=== PATIENT | female | born 1995 | race Hispanic/Latino ===

== ENCOUNTER 2021-05-22 21:14 | Emergency (ER) | payer MEDICAID ==
[~2021-05-22] VITALS: Ht 172.7 cm; Wt 81.6 kg
[2021-05-22 21:41] LABS: APPEARANCE,URINE Cloudy (CLEAR); BILIRUBIN,URINE Negative (NEGATIVE); COLOR,URINE Yellow (YELLOW); GLUCOSE, URINE (UA) Negative (NEGATIVE); KETONES,URINE Negative (NEGATIVE); LEUKOCYTE ESTERASE ,URINE Large (NEGATIVE); NITRATE,URINE Positive (NEGATIVE); OCCULT BLOOD,URINE Large (NEGATIVE); PH,URINE 6.5 (5.0-8.0); PROTEIN,URINE POS 1+ mg/dL (NEGATIVE)
[2021-05-22 21:43] LABS: HCG,QUAL RESULT NEGATIVE (NEGATIVE)
[2021-05-22 21:50] LABS: BACTERIA,URINE Moderate /HPF (None Seen); MUCUS,URINE Few LPF (None Seen); SQUAMOUS EPITHELIAL CELL,UR Few /HPF (0-2)
[2021-05-22 21:51] LABS: BASOPHILS % (AUTO) 0.4 % (0.0-5.0); EOSINOPHILS % (AUTO) 3.5 % (0.0-8.0); HEMATOCRIT 35.7 % (36-48); MEAN CORPUSCULAR HGB CONC 32.2 g/dL (32.0-36.0); MEAN CORPUSCULAR VOLUME 87.1 fL (79-99); MONOCYTES % (AUTO) 12.5 % (3.0-13.0); NEUTROPHILS % (AUTO) 49.4 % (40.0-77.0); PLATELET COUNT (AUTO) 185 K/uL (130-400); RED CELL DISTRIBUTION WIDTH 13.1 % (11.0-15.5); WHITE BLOOD COUNT (AUTO) 4.9 K/uL (4.8-10.8)
[2021-05-22 22:04] LABS: CREATININE 0.7 mg/dL (0.5-1.5); POTASSIUM 3.9 mmol/L (3.5-5.1)
[2021-05-22 22:11] LABS: ALBUMIN 3.8 g/dL (3.5-5.0); BILIRUBIN,TOTAL 0.2 mg/dL (0.2-1.0); TOTAL PROTEIN, SERUM 7.7 g/dL (6.0-8.3)
[2021-05-22] MEDS ORDERED: ONDANSETRON 4MG INJ IVP ONE (22:30)
[2021-05-22] MEDS ORDERED: KETOROLAC 15MG/ML VIAL (15MG/ML) IV ONE (22:30)
[2021-05-22] MEDS ORDERED: CEFTRIAXONE 1G VIAL IV ONE (22:30)
[2021-05-22] MEDS ORDERED: 0.9%NACL 1000ML 1,000 ML IV ONE (22:30)
[2021-05-22] MEDS ORDERED: ONDA4TAB10 PO (23:13)
[2021-05-22] MEDS ORDERED: CEPH500B PO (23:13)
[2021-05-22] MEDS ORDERED: PHEN-847 PO (23:13)
[2021-05-22 23:31] VITALS: BP 112/72
== END 2021-05-22 23:36 | disposition home or self-care (01) ==
LOC: EDH 21:14
DX: N39.0 Urinary tract infection, site not specified (principal); R11.2 Nausea with vomiting, unspecified; J45.909 Unspecified asthma, uncomplicated; Z79.899 Other long term (current) drug therapy; Z98.890 Other specified postprocedural states
CPT/HCPCS: 36415; 80053; 81001; 81025; 85025; 87077; 87088; 87186; 96361; 96374; 96375; J0696; J1885; J2405; J7030

== ENCOUNTER 2021-09-14 19:36 | Emergency (ER) | payer MEDICAID ==
[~2021-09-14] VITALS: Ht 175.3 cm; Wt 90.3 kg
[~2021-09-14 19:36] MED LIST: CEPH500B PO; ONDA4TAB10 PO; PHEN-847 PO
[2021-09-14] MEDS ORDERED: 0.9%NACL 1000ML 1,000 ML IV ONE (20:00)
[2021-09-14] MEDS ORDERED: ONDANSETRON 4MG INJ IVP ONE (20:00)
[2021-09-14 20:01] LABS: APPEARANCE,URINE CLEAR (CLEAR); BILIRUBIN,URINE NEGATIVE (NEGATIVE); COLOR,URINE YELLOW (YELLOW); GLUCOSE, URINE (UA) NEGATIVE (NEGATIVE); KETONES,URINE NEGATIVE (NEGATIVE); LEUKOCYTE ESTERASE ,URINE NEGATIVE (NEGATIVE); NITRATE,URINE NEGATIVE (NEGATIVE); OCCULT BLOOD,URINE MODERATE (NEGATIVE); PROTEIN,URINE NEGATIVE (NEGATIVE); UROBILINOGEN,URINE 0.2 mg/dL (0.2-1.0)
[2021-09-14 20:09] LABS: BACTERIA,URINE Rare /HPF (None Seen); SQUAMOUS EPITHELIAL CELL,UR Few /HPF (0-2); WBC,URINE 0-1 /HPF (0-1)
[2021-09-14 20:17] LABS: BASOPHILS % (AUTO) 0.6 % (0.0-5.0); EOSINOPHILS % (AUTO) 4.3 % (0.0-8.0); HEMATOCRIT 33.1 % (36-48); MEAN CORPUSCULAR HEMOGLOBIN 28.2 pg (27.0-33.0); MEAN CORPUSCULAR HGB CONC 33.5 g/dL (32.0-36.0); MONOCYTES % (AUTO) 5.9 % (3.0-13.0); NEUTROPHILS % (AUTO) 64.1 % (40.0-77.0); PLATELET COUNT (AUTO) 239 K/uL (130-400); RED BLOOD CELL COUNT(AUTO) 3.94 MIL/uL (4.00-5.50); RED CELL DISTRIBUTION WIDTH 13.7 % (11.0-15.5); WHITE BLOOD COUNT (AUTO) 9.4 K/uL (4.8-10.8)
[2021-09-14 20:31] LABS: CREATININE 0.5 mg/dL (0.5-1.5)
[2021-09-14] MEDS ORDERED: CEFTRIAXONE 1G VIAL IVP ONE (21:00)
[2021-09-14 21:01] LABS: ALBUMIN 3.4 g/dL (3.5-5.0); TOTAL PROTEIN, SERUM 7.7 g/dL (6.0-8.3)
[2021-09-14] MEDS ORDERED: CEPH500B PO (21:12)
[2021-09-14] MEDS ORDERED: ONDA4TAB10 PO (21:12)
[2021-09-14 21:29] VITALS: BP 133/74
== END 2021-09-14 21:31 | disposition home or self-care (01) ==
LOC: EDH 19:36
DX: O23.41 Unspecified infection of urinary tract in pregnancy, first trimester (principal); N39.0 Urinary tract infection, site not specified; E86.0 Dehydration; O99.511 Diseases of the respiratory system complicating pregnancy, first trimester; J45.909 Unspecified asthma, uncomplicated; Z3A.01 Less than 8 weeks gestation of pregnancy; Z79.899 Other long term (current) drug therapy
CPT/HCPCS: 99284; 96374; 96361; 96375; 80053; 84702; 83690; 85025; 81001; 36415; J7030; J0696; J2405

== ENCOUNTER 2021-10-13 17:05 | Emergency (ER) | payer MEDICAID ==
[~2021-10-13] VITALS: Ht 172.7 cm; Wt 86.2 kg
[~2021-10-13 17:05] MED LIST changes: +ALBUHFA IH; +PRED20TA3 PO
[2021-10-13 18:08] VITALS: BP 145/75
== END 2021-10-13 18:10 | disposition home or self-care (01) ==
LOC: EDH 17:05
DX: S46.911A Strain of unspecified muscle, fascia and tendon at shoulder and upper arm level, right arm, initial encounter (principal); J45.909 Unspecified asthma, uncomplicated; Z88.0 Allergy status to penicillin; Z88.2 Allergy status to sulfonamides; Z79.899 Other long term (current) drug therapy; Z98.890 Other specified postprocedural states; X58.XXXA Exposure to other specified factors, initial encounter; Y93.89 Activity, other specified; Y92.89 Other specified places as the place of occurrence of the external cause; Y99.8 Other external cause status
CPT/HCPCS: 73030

== ENCOUNTER 2022-03-22 12:10 | Observation (INO) | payer MEDICAID ==
[~2022-03-22] VITALS: Ht 175.3 cm; Wt 103.0 kg
[2022-03-22 12:31] VITALS: BP 125/77
[2022-03-22 13:46] LABS: APPEARANCE,URINE CLOUDY (CLEAR); BILIRUBIN,URINE NEGATIVE (NEGATIVE); COLOR,URINE LIGHT-YELLOW (YELLOW); GLUCOSE, URINE (UA) NEGATIVE (NEGATIVE); KETONES,URINE NEGATIVE (NEGATIVE); LEUKOCYTE ESTERASE ,URINE 75 Leu/uL (NEGATIVE); NITRATE,URINE NEGATIVE (NEGATIVE); PROTEIN,URINE NEGATIVE (NEGATIVE); UROBILINOGEN,URINE 0.2 mg/dL (0.2-1.0)
[2022-03-22 14:08] LABS: BACTERIA,URINE RARE /HPF (None Seen); MUCUS,URINE RARE LPF (None Seen); SQUAMOUS EPITHELIAL CELL,UR MANY /HPF (0-2)
[2022-03-22] MEDS ORDERED: LACTATED RINGERS 1000ML IV SCH (14:30)
== END 2022-03-22 15:05 | disposition home or self-care (01) ==
LOC: EDH 12:10 → LDH 12:50
PROVIDERS: ADMIT Obstetrics & Gynecology; ATTEND Obstetrics & Gynecology
DX: O26.893 Other specified pregnancy related conditions, third trimester (principal); R10.9 Unspecified abdominal pain; R42 Dizziness and giddiness; Z3A.36 36 weeks gestation of pregnancy
CPT/HCPCS: 87088; 81001; G0378 ×2; G0379

== ENCOUNTER 2022-08-15 10:10 | Emergency (ER) | payer MEDICAID ==
[~2022-08-15] VITALS: Ht 175.3 cm; Wt 90.7 kg
[2022-08-15 10:30] VITALS: BP 111/70
[2022-08-15] MEDS ORDERED: ACETAMINOPHEN 500 MG TABLET PO ONE (10:30)
[2022-08-15] MEDS ORDERED: KETOROLAC 30MG VIAL (30MG/ML) IM ONE (10:30)
[2022-08-15] MEDS ORDERED: CIPR7.5D OT (10:31)
[2022-08-15] MEDS ORDERED: CORTSOL AD (10:31)
== END 2022-08-15 11:05 | disposition home or self-care (01) ==
LOC: EDH 10:10
DX: H60.91 Unspecified otitis externa, right ear (principal); J45.909 Unspecified asthma, uncomplicated; Z79.52 Long term (current) use of systemic steroids; Z88.0 Allergy status to penicillin; Z88.2 Allergy status to sulfonamides
CPT/HCPCS: 99283; 96372; J1885

== ENCOUNTER 2022-08-15 23:36 | Emergency (ER) | payer MEDICAID ==
[~2022-08-15] VITALS: Ht 175.3 cm; Wt 94.8 kg
[~2022-08-15 23:36] MED LIST changes: +CIPR7.5D OT; +CORTSOL AD
[2022-08-15 23:37] VITALS: BP 132/85; PULSE 87; RESP 20
[2022-08-16] MEDS ORDERED: ACETAMINOPHEN 500 MG TABLET PO ONE (01:30)
[2022-08-16] MEDS ORDERED: ONDANSETRON ODT 4MG TAB SL ONE (01:30)
[2022-08-16 02:35] VITALS: TEMP 99.8
== END 2022-08-16 02:46 | disposition left against medical advice (07) ==
LOC: EDH 23:36
DX: R42 Dizziness and giddiness (principal); R50.9 Fever, unspecified; Z53.21 Procedure and treatment not carried out due to patient leaving prior to being seen by health care provider
CPT/HCPCS: 99283; 99281; 96372; J1885